=== PATIENT | male | born 1980 | race African-American/Black ===

== ENCOUNTER 2020-04-11 11:50 | Observation (INO) ==
[2020-04-11] MEDS ORDERED: NITROGLYCERIN 2% OINT 1 INCH/GM PACK TOP STA (13:11)
[2020-04-11] MEDS ORDERED: ALUM/MAG/SIMETH/LIDO VISC 1:1 30 ML BOTTLE PO STA (13:11)
[2020-04-11] MEDS ORDERED: ASPIRIN 325 MG TABLET PO STA (13:11)
[2020-04-11] MEDS ORDERED: ONDANSETRON 4 MG/2 ML VIAL IV STA (13:11)
[2020-04-11 13:20] LABS: Basophils # 0.1 10*3/uL (0.0-0.2); Basophils % 0.4 % (0.0-0.8); Eosinophils # 0.2 10*3/uL (0.0-0.87); Eosinophils % 1.9 % (0.00-10.9); Hematocrit 38.1 VOL% (42.0-52.0); Hemoglobin 11.7 GM/DL (14.0-18.0); Immature Granulocytes % 0.7 %; Immature Granulocytes Absolute 0.08 #; Lymphocytes # 2.2 10*3/uL (1.4-4.0); Lymphocytes % 18.4 % (21.2-54.2); Mean Corpuscular HGB Conc 30.7 GM/DL (32-36); Mean Corpuscular Volume 77.3 FL (87-102); Mean Platelet Volume 11.4 FL (9.6-12.0); Monocytes % 6.7 % (1.7-12.7); Neutrophils % 71.9 % (38.7-73.9); Platelet Count 327 T/CUMM (130-400); Red Blood Count 4.93 MC/CUMM (3.8-5.5); Red Cell Distribution Width 17.8 % (9.3-17.3); White Blood Count 11.9 T/CUMM (4-12)
[2020-04-11 13:27] LABS: PT Patient Result 10.6 SECS (9.8-11.9)
[2020-04-11] MEDS ORDERED: FUROSEMIDE 40 MG/4 ML VIAL IV STA (13:40)
[2020-04-11 13:47] LABS: Albumin 3.4 G/DL (3.4-5.0); Bilirubin,Total 0.5 MG/DL (0.2-1.0); Calcium 9.1 MG/DL (8.5-10.1); Osmolality,Calculated 264.4 MOS/KG (273-304)
[2020-04-11 14:35] LABS: Apearance,Urine CLEAR (Clear); Bacteria,Urine Occasional /HPF (Few); Bilirubin,Urine Negative (Negative); Blood, Urine Negative (Negative); Glucose,Urine (UA) Negative (Negative); Ketones,Urine Negative (Negative); Mucus,Urine Occasional /LPF (Occasional); Nitrite,Urine Negative (Negative); Protein,Urine Negative; RBC,Urine <1 /HPF (0-4); Squamous Epithelial Cell,Urine Occasional /HPF (0-10); Urine Color Straw (Yellow); Urine Specific Gravity 1.008 (1.001-1.035); Urine Urobilinogen < 2.0 EU/DL (0.2-1.0); WBC,Urine 1 /HPF (0-6)
[2020-04-11 14:47] LABS: Barbiturates Screen,Urine Negative (Negative); Benzodiazepines Screen,Urine Negative (Negative); Cannabinoid Screen,Urine Negative (Negative); Opiate Screen,Urine Negative (Negative); Phencyclidine Screen,Urine Negative (Negative)
[2020-04-11] MEDS ORDERED: DEXTROSE 10% 250 ML BAG IV PRN (15:05)
[2020-04-11] MEDS ORDERED: GLUCAGON 1 MG VIAL IM PRN (15:05)
[2020-04-11] MEDS ORDERED: amLODIPine 10 MG TABLET PO STA (15:07)
[2020-04-11] MEDS ORDERED: DOCUSATE SODIUM 100 MG CAPSULE PO PRN (15:26)
[2020-04-11] MEDS ORDERED: hydrALAZINE 20 MG/1 ML VIAL IV PRN (15:26)
[2020-04-11] MEDS ORDERED: ONDANSETRON 4 MG/2 ML VIAL IV PRN (15:26)
[2020-04-11 17:49] LABS: Ferritin 137.6 ng/ml (26-388)
[2020-04-11] MEDS: ACETAMINOPHEN 325 MG TABLET PO PRN (17:50)
[2020-04-11 17:55] LABS: Risk Ratio 3.26; Thyroid Stimulating Hormone 1.21 uIU/ml (0.358-3.74); VLDL CHOLESTEROL 18.4 MG/DL
[2020-04-11] MEDS: APIXABAN 5 MG TABLET PO SCH (18:26)
[2020-04-11] MEDS ORDERED: ENOXAPARIN 40 MG/0.4 ML SYRINGE SUBCUT SCH (21:00)
[2020-04-11] MEDS ORDERED: MELATONIN 3 MG TABLET PO PRN (23:06)
[2020-04-12 03:03] LABS: Basophils # 0.1 10*3/uL (0.0-0.2); Basophils % 0.5 % (0.0-0.8); Eosinophils # 0.2 10*3/uL (0.0-0.87); Eosinophils % 1.7 % (0.00-10.9); Hematocrit 37.4 VOL% (42.0-52.0); Hemoglobin 11.6 GM/DL (14.0-18.0); Immature Granulocytes % 0.6 %; Immature Granulocytes Absolute 0.07 #; Lymphocytes # 1.9 10*3/uL (1.4-4.0); Lymphocytes % 17.1 % (21.2-54.2); Mean Corpuscular Volume 76.2 FL (87-102); Mean Platelet Volume 10.2 FL (9.6-12.0); Monocytes % 7.4 % (1.7-12.7); Neutrophils % 72.7 % (38.7-73.9); Platelet Count 316 T/CUMM (130-400); Red Blood Count 4.91 MC/CUMM (3.8-5.5); Red Cell Distribution Width 17.8 % (9.3-17.3); White Blood Count 11.3 T/CUMM (4-12)
[2020-04-12 03:20] LABS: Calcium 8.8 MG/DL (8.5-10.1)
[2020-04-12] MEDS: ACETAMINOPHEN 325 MG TABLET PO PRN (07:02)
[2020-04-12 08:25] VITALS: BP 137/65
[2020-04-12] MEDS ORDERED: ASPIRIN EC 325 MG TABLET PO SCH (09:00)
[2020-04-12] MEDS ORDERED: amLODIPine 10 MG TABLET PO SCH (09:00)
[2020-04-12] MEDS ORDERED: MULTIVITAMIN (CENTRUM) TABLET PO SCH (09:00)
[2020-04-12] MEDS ORDERED: ASCORBIC ACID 500 MG TABLET PO SCH (09:00)
[2020-04-12] MEDS ORDERED: CHOLECALCIFEROL 1,000 UNIT TABLET PO SCH (09:00)
[2020-04-12] MEDS ORDERED: LOSARTAN 50 MG TABLET PO SCH (09:00)
[2020-04-12] MEDS: APIXABAN 5 MG TABLET PO SCH (09:06)
== END 2020-04-12 11:48 | disposition home or self-care (01) ==
LOC: N.ED 11:50 → N.EDINP 11:50 → N.TELES 16:04
PROVIDERS: ADMIT Internal Medicine; ATTEND Internal Medicine

== ENCOUNTER 2020-12-11 21:19 | Observation (INO) ==
[2020-12-11 21:46] LABS: Basophils # 0.1 10*3/uL (0.0-0.2); Basophils % 0.5 % (0.0-0.8); Eosinophils # 0.1 10*3/uL (0.0-0.87); Eosinophils % 0.4 % (0.00-10.9); Hematocrit 37.3 VOL% (42.0-52.0); Hemoglobin 11.3 GM/DL (14.0-18.0); Immature Granulocytes % 2.3 %; Immature Granulocytes Absolute 0.43 #; Lymphocytes # 2.6 10*3/uL (1.4-4.0); Lymphocytes % 14.2 % (21.2-54.2); Mean Corpuscular HGB Conc 30.3 GM/DL (32-36); Mean Corpuscular Volume 79.5 FL (87-102); Mean Platelet Volume 10.6 FL (9.6-12.0); Monocytes % 8.7 % (1.7-12.7); Neutrophils % 73.9 % (38.7-73.9); Platelet Count 381 T/CUMM (130-400); Red Blood Count 4.69 MC/CUMM (3.8-5.5); Red Cell Distribution Width 17.1 % (9.3-17.3); White Blood Count 18.6 T/CUMM (4-12)
[2020-12-11 21:58] LABS: PT Patient Result 10.4 SECS (9.8-11.9); Partial Thromboplastin Time 28.5 SECS (23.9-33.8)
[2020-12-11 22:09] LABS: Alanine Aminotransferase 23 U/L (16-61); Albumin 3.1 G/DL (3.4-5.0); Alkaline Phosphatase 142 U/L (45-117); Aspartate Amino Transferase 15 U/L (0-37); Bilirubin,Total < 0.39 MG/DL (0.2-1.0); Blood Urea Nitrogen 12 MG/DL (7-18); Carbon Dioxide 26 MMOL/L (21-32); Estimated Glom Filtration Rate 229 ML/MIN; Glucose 177 MG/DL (74-106); Osmolality,Calculated 282.4 MOS/KG (273-304); Potassium 3.3 MMOL/L (3.5-5.1); Sodium 140 MMOL/L (136-145); Total Protein 8.6 G/DL (6.4-8.3)
[2020-12-12] MEDS ORDERED: ONDANSETRON 4 MG/2 ML VIAL ONE (01:16)
[2020-12-12] MEDS ORDERED: MORPHINE 4 MG/1 ML VIAL ONE (01:17)
[2020-12-12] MEDS ORDERED: KETOROLAC 30 MG/1 ML VIAL IV STA (01:21)
[2020-12-12] MEDS ORDERED: LEVOFLOXACIN INJ 750 MG in PREMIX 1 EACH IV STA (01:21)
[2020-12-12] MEDS ORDERED: ONDANSETRON 4 MG/2 ML VIAL IV STA (01:27)
[2020-12-12] MEDS ORDERED: MORPHINE 4 MG/1 ML VIAL IV STA (01:27)
[2020-12-12] MEDS ORDERED: MORPHINE 4 MG/1 ML VIAL IV PRN (02:52)
[2020-12-12] MEDS ORDERED: DEXTROSE 50% 25 GM/50 ML VIAL IV PRN (02:52)
[2020-12-12] MEDS ORDERED: ONDANSETRON 4 MG/2 ML VIAL IV PRN (02:52)
[2020-12-12] MEDS ORDERED: ALBUTEROL/IPRATROPIUM 3 ML NEB RESP TX PRN (02:52)
[2020-12-12] MEDS ORDERED: GLUCAGON 1 MG VIAL IM PRN (02:52)
[2020-12-12] MEDS ORDERED: APIXABAN 5 MG TABLET PO ONE (02:52)
[2020-12-12] MEDS: ACETAMINOPHEN 325 MG TABLET PO PRN ×2 (07:01→11:47)
[2020-12-12 07:12] LABS: Eosinophils # 0.1 10*3/uL (0.0-0.87); Eosinophils % 0.5 % (0.00-10.9)
[2020-12-12 07:33] LABS: Basophils # 0.1 10*3/uL (0.0-0.2); Basophils % 0.4 % (0.0-0.8); Hematocrit 37.8 VOL% (42.0-52.0); Immature Granulocytes % 2.4 %; Immature Granulocytes Absolute 0.38 #; Lymphocytes # 2.5 10*3/uL (1.4-4.0); Lymphocytes % 15.6 % (21.2-54.2); Mean Corpuscular HGB Conc 29.6 GM/DL (32-36); Mean Corpuscular Volume 81.3 FL (87-102); Mean Platelet Volume 10.8 FL (9.6-12.0); Monocytes % 7.5 % (1.7-12.7); Neutrophils % 73.6 % (38.7-73.9); Platelet Count 359 T/CUMM (130-400); Red Blood Count 4.65 MC/CUMM (3.8-5.5); Red Cell Distribution Width 17.2 % (9.3-17.3)
[2020-12-12 07:34] LABS: Hemoglobin 11.2 GM/DL (14.0-18.0)
[2020-12-12 07:41] LABS: Bilirubin,Total 0.5 MG/DL (0.2-1.0); Calcium 8.2 MG/DL (8.5-10.1); Osmolality,Calculated 270.8 MOS/KG (273-304); Potassium 3.4 MMOL/L (3.5-5.1); Risk Ratio 2.43; Total Protein 8.5 G/DL (6.4-8.3)
[2020-12-12] MEDS ORDERED: POTASSIUM CHLORIDE 20 MEQ TABLET PO PRN (08:44)
[2020-12-12] MEDS ORDERED: APIXABAN 5 MG TABLET PO SCH (09:00)
[2020-12-12] MEDS ORDERED: LOSARTAN 50 MG TABLET PO SCH ×2 (09:00→11:00)
[2020-12-12 12:35] VITALS: BP 131/60
[2020-12-13] MEDS ORDERED: LEVOFLOXACIN INJ 750 MG in PREMIX 1 EACH IV SCH (09:00)
[2020-12-13] MEDS ORDERED: ASCORBIC ACID 500 MG TABLET PO SCH (09:00)
== END 2020-12-12 16:43 | disposition home or self-care (01) ==
LOC: N.ED 21:19 → N.EDINP 21:19 → N.5E 12-12 02:22
PROVIDERS: ADMIT Internal Medicine; ATTEND Internal Medicine

== ENCOUNTER 2021-02-09 18:04 | Observation (INO) ==
[2021-02-09] MEDS ORDERED: ASPIRIN 325 MG TABLET PO STA (19:10)
[2021-02-09 19:33] LABS: Alanine Aminotransferase 24 U/L (16-61); Albumin 3.2 G/DL (3.4-5.0); Alkaline Phosphatase 122 U/L (45-117); Aspartate Amino Transferase 23 U/L (0-37); Blood Urea Nitrogen 10 MG/DL (7-18); Calcium 8.7 MG/DL (8.5-10.1); Carbon Dioxide 28 MMOL/L (21-32); Estimated Glom Filtration Rate 220 ML/MIN; Glucose 85 MG/DL (74-106); Osmolality,Calculated 272.7 MOS/KG (273-304); Potassium 3.4 MMOL/L (3.5-5.1); Sodium 138 MMOL/L (136-145); Total Protein 8.6 G/DL (6.4-8.2); Troponin I < 0.015 NG/ML (0.00-0.045)
[2021-02-09 19:42] LABS: Basophils # 0.1 10*3/uL (0.0-0.2); Basophils % 0.5 % (0.0-0.8); Eosinophils # 0.2 10*3/uL (0.0-0.87); Eosinophils % 1.8 % (0.00-10.9); Hematocrit 37.3 VOL% (42.0-52.0); Hemoglobin 11.6 GM/DL (14.0-18.0); Immature Granulocytes % 0.6 %; Immature Granulocytes Absolute 0.07 #; Mean Corpuscular HGB Conc 31.1 GM/DL (32-36); Mean Corpuscular Volume 78.4 FL (87-102); Monocytes % 8.4 % (1.7-12.7); Neutrophils % 70.7 % (38.7-73.9); Platelet Count 325 T/CUMM (130-400); Red Blood Count 4.76 MC/CUMM (3.8-5.5); Red Cell Distribution Width 16.8 % (9.3-17.3)
[2021-02-09 20:01] LABS: PT Patient Result 10.9 SECS (9.8-11.9)
[2021-02-09] MEDS ORDERED: DEXTROSE 50% 25 GM/50 ML VIAL IV PRN (20:54)
[2021-02-09] MEDS ORDERED: GLUCAGON 1 MG VIAL IM PRN (20:54)
[2021-02-09] MEDS ORDERED: ONDANSETRON 4 MG/2 ML VIAL IV PRN (20:54)
[2021-02-09] MEDS: ACETAMINOPHEN 325 MG TABLET PO PRN (23:00)
[2021-02-10] MEDS: APIXABAN 5 MG TABLET PO SCH ×2 (00:23→10:46)
[2021-02-10 06:58] LABS: Basophils # 0.1 10*3/uL (0.0-0.2); Basophils % 0.6 % (0.0-0.8); Eosinophils # 0.2 10*3/uL (0.0-0.87); Eosinophils % 2.3 % (0.00-10.9); Hematocrit 38.3 VOL% (42.0-52.0); Hemoglobin 11.8 GM/DL (14.0-18.0); Immature Granulocytes % 0.5 %; Immature Granulocytes Absolute 0.04 #; Lymphocytes # 1.4 10*3/uL (1.4-4.0); Lymphocytes % 18.6 % (21.2-54.2); Mean Corpuscular HGB Conc 30.8 GM/DL (32-36); Mean Corpuscular Volume 79.5 FL (87-102); Mean Platelet Volume 10.7 FL (9.6-12.0); Monocytes % 8.5 % (1.7-12.7); Neutrophils % 69.5 % (38.7-73.9); Platelet Count 288 T/CUMM (130-400); Red Blood Count 4.82 MC/CUMM (3.8-5.5); Red Cell Distribution Width 16.9 % (9.3-17.3); White Blood Count 7.7 T/CUMM (4-12)
[2021-02-10 07:23] LABS: Albumin 3.3 G/DL (3.4-5.0); Bilirubin,Total 0.6 MG/DL (0.2-1.0); Calcium 9.1 MG/DL (8.5-10.1); Osmolality,Calculated 275.5 MOS/KG (273-304); Potassium 3.7 MMOL/L (3.5-5.1); Risk Ratio 3.17; Total Protein 8.6 G/DL (6.4-8.2); VLDL CHOLESTEROL 15.2 MG/DL
[2021-02-10] MEDS: ACETAMINOPHEN 325 MG TABLET PO PRN ×2 (07:31→16:30)
[2021-02-10] MEDS ORDERED: CETIRIZINE 10 MG TABLET PO SCH (09:00)
[2021-02-10] MEDS ORDERED: BUDESONIDE/FORMOTEROL 160-4.5 INHALER 6 GM INH SCH (09:00)
[2021-02-10] MEDS ORDERED: LOSARTAN 50 MG TABLET PO SCH (09:00)
[2021-02-10] MEDS ORDERED: CHOLECALCIFEROL 1,000 UNIT TABLET PO SCH (09:00)
[2021-02-10] MEDS ORDERED: ASCORBIC ACID 500 MG TABLET PO SCH (09:00)
[2021-02-10] MEDS ORDERED: SPIRONOLACTONE 25 MG TABLET PO SCH (09:00)
[2021-02-10] MEDS ORDERED: MULTIVITAMIN LIQUID (CENTRUM) 60 ML BOTTLE PO SCH (09:00)
[2021-02-10] MEDS ORDERED: FLUTICASONE 50 MCG NASAL SPRAY 16 GM BOTTLE BOTH NARES SCH (09:00)
[2021-02-10] MEDS ORDERED: PANTOPRAZOLE 40 MG TABLET PO SCH (09:00)
[2021-02-10 12:11] VITALS: BP 111/62
[2021-02-10] MEDS: COLCHICINE 0.6 MG CAPSULE PO SCH ×2 (13:05→16:30)
[2021-02-10] MEDS: INDOMETHACIN 25 MG CAPSULE PO SCH ×2 (13:06→16:31)
== END 2021-02-10 19:00 | disposition home or self-care (01) ==
LOC: N.EDINP 18:04 → N.ED 18:04 → N.4E 21:18
PROVIDERS: ADMIT Internal Medicine; ATTEND Internal Medicine